=== PATIENT | male | born 1940 | race Caucasian/White ===

== ENCOUNTER 2017-02-12 15:12 | Day surgery (SDC) | payer BC ==
[2017-02-12] MEDS ORDERED: Sodium Chloride 0.9% 10 ML ONE ×2 (15:30→15:48)
== END 2017-02-12 15:58 | disposition home or self-care (01) ==
LOC: ONC/OP 15:12
PROVIDERS: ATTEND Internal Medicine Hematology & Oncology
DX: Z45.2 Encounter for adjustment and management of vascular access device (principal); C95.00 Acute leukemia of unspecified cell type not having achieved remission; Z88.5 Allergy status to narcotic agent
CPT/HCPCS: 96523; A4216; J1642

== ENCOUNTER 2017-02-14 09:34 | Day surgery (SDC) | payer BC ==
[2017-02-14] MEDS ORDERED: diphenhydrAMINE 25 MG CAP PO SCH (10:30)
[2017-02-14] MEDS ORDERED: Acetaminophen 500 MG TAB PO SCH (10:30)
[2017-02-14] MEDS ORDERED: Sodium Chloride 0.9% 20 ML ONE (12:44)
[2017-02-14 16:56] VITALS: BP 112/55; TEMP 98.2
[2017-02-14 17:24] LABS: Hematocrit 27.9 % (42.0-52.0); Mean Platelet Volume 6.2 fL (7.4-10.4); Red Blood Cell (RBC) Count 2.85 mill/uL (4.70-6.10); White Blood Cell (WBC) Count 0.9 thou/uL (4.8-10.8)
[2017-02-14 18:11] LABS: Anisocytosis SLIGHT = 6-15 cells (100X) (0-5/hpf); Neutrophil 11 % (42-75); Ovalocytes SLIGHT = 2-5 cells (100X) (0-1/hpf); Polychromasia SLIGHT = 2-3 cells (100X) (0-2/hpf); Reactive Lymphocytes 2 % (0-10); Schistocytes SLIGHT = 2-5 cells (100X) (0-1/hpf)
== END 2017-02-14 17:02 | disposition home or self-care (01) ==
LOC: ONC/OP 09:34
PROVIDERS: ATTEND Internal Medicine Hematology & Oncology
PROC: 30230N1 Transfusion of Nonautologous Red Blood Cells into Peripheral Vein, Open Approach (ICD-10-PCS; principal; 2017-02-14)
DX: D64.9 Anemia, unspecified (principal); D69.59 Other secondary thrombocytopenia; Z88.5 Allergy status to narcotic agent
CPT/HCPCS: 36430; 85025; 85060; 86850; 86900; 86901; A4216; J1642; P9016

== ENCOUNTER 2019-09-24 15:01 | Emergency (ER) | payer BC ==
[2019-09-24] MEDS ORDERED: Morphine 10 MG/ML VIAL ONE (15:48)
--- NOTE | 2019-09-24 17:01 | RAD ---
SINGLE VIEW OF THE CHEST: Comparison: 01-09-18 History: PICC line pain in the right arm. FINDINGS: Single view of the chest shows a normal sized cardiomediastinal silhouette. There is a PICC line with its tip in the superior vena cava. There is no evidence of consolidation, mass, or pleural effusion. IMPRESSION: No evidence of acute cardiopulmonary disease. POS: EAA
--- NOTE | 2019-09-24 17:36 | ULT ---
RIGHT UPPER EXTREMITY VENOUS ULTRASOUND: 09/24/19 HISTORY: PICC line in the right arm with pain in the PICC area for three days. TECHNIQUE: Multiplanar guzman scale and color Doppler images were obtained in a right upper extremity venous ultra sound. Spectral analysis of the Doppler waveforms were performed. FINDINGS: The right internal jugular vein demonstrates normal compression and flow without evidence of thrombus . The right subclavian vein demonstrates normal flow and augmentation without evidence of thrombus. T he axillary and brachial veins demonstrate normal compression, flow and augmentation without evidence of thrombus. A PICC line is seen within the basilic vein. Flow is seen within the basilic vein aroun d the PICC line. Flow is also seen in the cephalic vein. IMPRESSION: No DVT seen in the right upper extremity. POS: EAA
[2019-09-24] MEDS ORDERED: HYDROcodone/Acetaminophen 10/325 mg Tablet ONE (17:40)
== END 2019-09-24 17:56 | disposition home or self-care (01) ==
LOC: ERS 15:01
DX: M25.511 Pain in right shoulder (principal); C92.90 Myeloid leukemia, unspecified, not having achieved remission; E78.00 Pure hypercholesterolemia, unspecified; I10 Essential (primary) hypertension; K21.9 Gastro-esophageal reflux disease without esophagitis; Z85.46 Personal history of malignant neoplasm of prostate; Z79.899 Other long term (current) drug therapy
CPT/HCPCS: 71045; 96372; J2270